=== PATIENT | female | born 1970 | race Caucasian/White ===

== ENCOUNTER → 2016-10-19 | Outpatient (CLI) | payer OTHER ==
[~2016-10-19] MED LIST: APAP500 PO; DEPO-PROVE150 MG/1 M IM; LABETALOL 100100 MG; PRENATAL PLUS1 EAC4 PO; PRENATAL PO; PRENATAL VITAM1 EAC6 PO; TUMS CHEWA500 MG/11 PO; VALTREX1000 MG PO
== END ==
LOC: ULTRA 09:52
DX: M79.605 Pain in left leg (principal); M79.604 Pain in right leg; M79.89 Other specified soft tissue disorders

== ENCOUNTER → 2017-04-15 | Outpatient (CLI) | payer OTHER ==
[~2017-04-15] MED LIST changes: +ANCEF 1GM1 GM/50 M1 IVPB; +COMPAZINE10 MG PO; +CYMBALTA60 MG PO; +LASIX 20 MG TAB20 MG PO; +MOBIC7.5 MG PO; +OXYCODONE HCL 55 MG PO; +OXYCONTIN10 M1 PO; +SENNOSIDES-DOC1 EACH PO
== END ==
LOC: RAD 12:22
DX: R05 Cough (principal)

== ENCOUNTER 2018-01-27 14:35 | Emergency (ER) | payer OTHER ==
[~2018-01-27] VITALS: Ht 172.7 cm; Wt 99.8 kg
[2018-01-27 15:56] LABS: ABSOLUTE NEUTROPHILS 3.5 thou/uL (1.4-8.2); BASOPHILS 0.8 % (0.0-2.0); HEMATOCRIT 33.6 % (37.0-47.0); HEMOGLOBIN 11.4 gm/dL (12.0-15.0); LYMPHOCYTES 9.5 % (24.0-44.0); MCH 27.9 pg (26.0-34.0); MCHC 33.7 g/dL (28.0-37.0); MCV 82.8 fL (80.0-100.0); MONOCYTES 6.9 % (1.0-8.0); PLATELET COUNT 224 thou/uL (150-400); POLYS 81.8 % (36.0-66.0); RBC 4.07 mil/uL (4.20-5.00); RDW 15.3 % (10.5-14.5); WBC 4.3 thou/uL (4.0-11.0)
[2018-01-27 16:09] LABS: APTT 30.2 Seconds (24.5-32.8); CALCIUM 9.4 mg/dL (8.5-10.1); CREATININE 0.8 mg/dL (0.6-1.0); POTASSIUM 3.5 mmol/L (3.5-5.1); PROTIME 10.5 Seconds (9.3-11.4)
[2018-01-27] MEDS ORDERED: HYDROCORTISONE30 G9 RECTAL (16:12)
[2018-01-27] MEDS ORDERED: ANUSOL-HC25 MG RECTAL (16:12)
[2018-01-27 16:14] LABS: ALBUMIN 3.2 g/dL (3.4-5.0); TOTAL BILIRUBIN 0.9 mg/dL (<0.1-1.0); TOTAL PROTEIN 6.3 g/dL (6.4-8.2)
[2018-01-27] MEDS ORDERED: DEPEN250 MG PO (17:06)
[2018-01-27] MEDS ORDERED: VOTRIENT200 MG PO (17:06)
[2018-01-27 17:24] VITALS: BP 160/98
== END 2018-01-27 17:24 | disposition home or self-care (01) ==
LOC: ER 14:35
PROVIDERS: Emergency Medicine
DX: K62.5 Hemorrhage of anus and rectum (principal); K60.2 Anal fissure, unspecified; K64.4 Residual hemorrhoidal skin tags; I10 Essential (primary) hypertension; Z86.2 Personal history of diseases of the blood and blood-forming organs and certain disorders involving the immune mechanism; Z90.710 Acquired absence of both cervix and uterus

== ENCOUNTER 2018-09-16 23:00 | Emergency (ER) | payer OTHER ==
[~2018-09-16] VITALS: Ht 172.7 cm; Wt 103.9 kg
[~2018-09-16 23:00] MED LIST changes: +ANUSOL-HC25 MG RECTAL; +DEPEN250 MG PO; +HYDROCORTISONE30 G9 RECTAL; +VOTRIENT200 MG PO
[2018-09-16] MEDS ORDERED: DILAUDID 4 MG TA4 M1 PO (23:44)
[2018-09-16 23:58] LABS: HEMATOCRIT 26.9 % (37.0-47.0); HEMOGLOBIN 8.7 gm/dL (12.0-15.0); MCH 25.6 pg (26.0-34.0); MCHC 32.5 g/dL (28.0-37.0); MCV 78.8 fL (80.0-100.0); PLATELET COUNT 230 thou/uL (150-400); RBC 3.42 mil/uL (4.20-5.00); RDW 18.9 % (10.5-14.5); WBC 2.4 thou/uL (4.0-11.0)
[2018-09-17 00:06] LABS: CALCIUM 8.7 mg/dL (8.5-10.1); CREATININE 0.8 mg/dL (0.6-1.0); POTASSIUM 3.9 mmol/L (3.5-5.1)
[2018-09-17 00:11] LABS: ALBUMIN 2.8 g/dL (3.4-5.0); TOTAL BILIRUBIN 0.5 mg/dL (<0.1-1.0); TOTAL PROTEIN 6.3 g/dL (6.4-8.2)
[2018-09-17 00:49] LABS: ABSOLUTE NEUTROPHILS 1.3 thou/uL (1.4-8.2); ANISOCYTOSIS 2+; METAMYELOCYTES 2 %; MYELOCYTES 1 %; POLYCHROMASIA 1+
[2018-09-17 13:26] VITALS: BP 170/100
[2018-09-17] MEDS ORDERED: LACTULOSE PO (15:38)
== END 2018-09-17 16:29 | disposition home or self-care (01) ==
LOC: ER 23:00
PROVIDERS: Emergency Medicine
DX: K59.00 Constipation, unspecified (principal); C79.89 Secondary malignant neoplasm of other specified sites; I10 Essential (primary) hypertension; Z91.041 Radiographic dye allergy status; Z91.040 Latex allergy status; Z90.710 Acquired absence of both cervix and uterus; Z86.2 Personal history of diseases of the blood and blood-forming organs and certain disorders involving the immune mechanism

== ENCOUNTER → 2018-09-22 | Outpatient (CLI) | payer OTHER ==
[~2018-09-22] MED LIST changes: +DILAUDID 4 MG TA4 M1 PO; +LACTULOSE PO
== END ==
LOC: ULTRA 17:09
DX: I82.622 Acute embolism and thrombosis of deep veins of left upper extremity (principal); M25.552 Pain in left hip